=== PATIENT | female | born 1990 | race Caucasian/White ===

== ENCOUNTER 2016-08-30 00:31 | Emergency (ER) | payer OTHER ==
[~2016-08-30] VITALS: Ht 154.9 cm; Wt 61.2 kg
[~2016-08-30 00:31] MED LIST: AMOXICILLIN875 MG PO; BACTRIM DS TABL1 TAB PO; BENTYL20 MG PO; DICLOFENAC PO; FLEXERIL PO; KEFLEX PO; MOTRIN600 MG PO; NAPROSYN500 MG PO; NO MEDICATIONS; PHENERGAN25 MG PO; PYRIDIUM PO; TYLENOL #3 PO; VOLTAREN75 MG PO
== END 2016-08-30 01:50 | disposition home or self-care (01) ==
LOC: SED 00:31
DX: J20.9 Acute bronchitis, unspecified (principal); F17.200 Nicotine dependence, unspecified, uncomplicated; Z88.2 Allergy status to sulfonamides; Z88.5 Allergy status to narcotic agent
CPT/HCPCS: 99283